=== PATIENT | female | born 1975 | race American Indian/Alaskan Native ===

== ENCOUNTER 2020-07-07 15:05 | Emergency (ER) | payer OTHER ==
[2020-07-07] MEDS ORDERED: ZIPRASIDONE MESYLATE 20 MG VIAL IM ONE (17:14)
--- NOTE | 2020-07-07 18:13 | Emergency Department Report ---
ED General Adult HPI - General Chief complaint: Psych Stated complaint: PSYCH Time Seen by Provider: 07/07/20 16:20 Source: patient, EMS Mode of arrival: Stretcher Limitations: Altered Mental Status - History of Present Illness Initial comments: Patient presents to the emergency department with a chief complaint of mental health evaluation. Patient was found on the side of the road by PD and complaint of not being able to walk but at the time of her complaint she was standing or walking. Patient is also standing in the emergency department. Patient is very psychotic and is severely paranoid and is difficult to obtain a history from the patient. She denies wanting to kill self or others. -: unknown Severity scale (0 -10): 0 Consistency: constant Improves with: none Worsens with: none Associated Symptoms: denies other symptoms Treatments Prior to Arrival: none - Related Data Home Medications Medication Instructions Recorded Confirmed Last Taken Bupropion HCl [Wellbutrin XL] 300 mg PO TID 07/07/20 07/07/20 Unknown Buspar 07/07/20 Unknown Gabapentin 07/07/20 Unknown Hydralazine HCl 50 mg PO TID 07/07/20 07/07/20 Unknown Nortriptyline 50 mg PO TID 07/07/20 07/07/20 Unknown labetaloL [Labetalol 200mg TAB] 200 mg PO TID 07/07/20 07/07/20 Unknown tiZANidine [Zanaflex 4mg TAB] 4 mg PO QID 07/07/20 07/07/20 Unknown Allergies Allergy/AdvReac Type Severity Reaction Status Date / Time amoxicillin AdvReac Unknown Verified 07/07/20 15:19 ED Review of Systems ROS: Stated complaint: PSYCH Other details as noted in HPI Comment: All other systems reviewed and negative Constitutional: denies: chills, fever Eyes: denies: eye pain, eye discharge, vision change ENT: denies: ear pain, throat pain Respiratory: denies: cough, shortness of breath, wheezing Cardiovascular: denies: chest pain, palpitations Endocrine: no symptoms reported Gastrointestinal: denies: abdominal pain, nausea, diarrhea Genitourinary: denies: urgency, dysuria, discharge Musculoskeletal: denies: back pain, joint swelling, arthralgia Skin: denies: rash, lesions Neurological: denies: headache, weakness, paresthesias, other Psychiatric: denies: anxiety, depression, homicidal thoughts Hematological/Lymphatic: denies: easy bleeding, easy bruising ED Past Medical Hx - Past Medical History Hx Psychiatric Treatment: Yes (bipolar, schizophrenia) - Social History Smoking Status: Never Smoker - Medications Home Medications: Home Medications Medication Instructions Recorded Confirmed Last Taken Type Bupropion HCl [Wellbutrin XL] 300 mg PO TID 07/07/20 07/07/20 Unknown History Buspar 07/07/20 Unknown History Gabapentin 07/07/20 Unknown History Hydralazine HCl 50 mg PO TID 07/07/20 07/07/20 Unknown History Nortriptyline 50 mg PO TID 07/07/20 07/07/20 Unknown History labetaloL [Labetalol 200mg TAB] 200 mg PO TID 07/07/20 07/07/20 Unknown History tiZANidine [Zanaflex 4mg TAB] 4 mg PO QID 07/07/20 07/07/20 Unknown History ED Physical Exam - General Limitations: Altered Mental Status General appearance: alert, in no apparent distress - Head Head exam: Present: atraumatic, normocephalic - Eye Eye exam: Present: normal appearance, PERRL, EOMI - ENT ENT exam: Present: mucous membranes moist - Neck Neck exam: Present: normal inspection - Respiratory Respiratory exam: Present: normal lung sounds bilaterally. Absent: respiratory distress - Cardiovascular Cardiovascular Exam: Present: regular rate, normal rhythm. Absent: systolic murmur, diastolic murmur, rubs, gallop - GI/Abdominal GI/Abdominal exam: Present: soft, normal bowel sounds. Absent: distended, tenderness - Extremities Exam Extremities exam: Present: normal inspection - Back Exam Back exam: Present: normal inspection - Neurological Exam Neurological exam: Present: alert, oriented X3, CN II-XII intact. Absent: motor sensory deficit - Psychiatric Psychiatric exam: Present: manic, other (Paranoid and expressing psychoses) - Skin Skin exam: Present: warm, dry, intact, normal color. Absent: rash ED Course Vital Signs 07/07/20 07/07/20 07/07/20 15:14 20:45 21:48 Temperature 99.0 F 98 F Pulse Rate 124 H 115 H 113 H Respiratory 20 18 Rate Blood Pressure 201/137 Blood Pressure 210/114 201/137 [Left] O2 Sat by Pulse 97 99 Oximetry 07/07/20 23:51 Temperature Pulse Rate 76 Respiratory 16 Rate Blood Pressure Blood Pressure 158/88 [Left] O2 Sat by Pulse 99 Oximetry ED Medical Decision Making - Lab Data Result diagrams: 07/07/20 20:59 07/07/20 20:59 Lab Results 07/07/20 07/07/20 07/07/20 Range/Units 20:59 20:59 20:59 WBC 9.7 (4.5-11.0) K/mm3 RBC 4.35 (3.65-5.03) M/mm3 Hgb 12.7 (10.1-14.3) gm/dl Hct 38.3 (30.3-42.9) % MCV 88 (79-97) fl MCH 29 (28-32) pg MCHC 33 (30-34) % RDW 14.9 (13.2-15.2) % Plt Count 353 (140-440) K/mm3 Lymph % (Auto) 23.6 (13.4-35.0) % [place] % (Auto) 8.5 H (0.0-7.3) % Eos % (Auto) 1.3 (0.0-4.3) % Baso % (Auto) 0.3 (0.0-1.8) % Lymph # (Auto) 2.3 (1.2-5.4) K/mm3 [place] # (Auto) 0.8 (0.0-0.8) K/mm3 Eos # (Auto) 0.1 (0.0-0.4) K/mm3 Baso # (Auto) 0.0 (0.0-0.1) K/mm3 Add Manual Diff Complete Seg Neutrophils % 66.3 (40.0-70.0) % Seg Neutrophils # 6.4 (1.8-7.7) K/mm3 Sodium (137-145) mmol/L Potassium (3.6-5.0) mmol/L Chloride (98-107) mmol/L Carbon Dioxide (22-30) mmol/L Anion Gap mmol/L BUN (7-17) mg/dL Creatinine (0.6-1.2) mg/dL Estimated GFR ml/min BUN/Creatinine Ratio % Glucose (65-100) mg/dL Calcium (8.4-10.2) mg/dL Total Bilirubin (0.1-1.2) mg/dL AST (5-40) units/L ALT (7-56) units/L Alkaline Phosphatase (35-129) units/L Total Protein (6.3-8.2) g/dL Albumin (3.9-5) g/dL Albumin/Globulin Ratio % Urine Color (Yellow) Urine Turbidity (Clear) Urine pH (5.0-7.0) Ur Specific [place] (1.003-1.030) Urine Protein (Negative) mg/dL Urine Glucose (UA) (Negative) mg/dL Urine Ketones (Negative) mg/dL Urine Blood (Negative) Urine Nitrite (Negative) Urine Bilirubin (Negative) Urine Urobilinogen (<2.0) mg/dL Ur Leukocyte Esterase (Negative) Urine WBC (Auto) (0.0-6.0) /HPF Urine RBC (Auto) (0.0-6.0) /HPF U Epithel Cells (Auto) (0-13.0) /HPF Urine Bacteria (Auto) (Negative) /HPF Urine Mucus /HPF Salicylates < 0.3 L (2.8-20.0) mg/dL Urine Opiates Screen Urine Methadone Screen Acetaminophen < 5.0 L (10.0-30.0) ug/mL Ur Barbiturates Screen Ur Phencyclidine Scrn Ur Amphetamines Screen U Benzodiazepines Scrn Urine Cocaine Screen U Marijuana (THC) Screen Drugs of Abuse Note Plasma/Serum Alcohol (0-0.07) % 07/07/20 07/07/20 07/07/20 Range/Units 20:59 20:59 21:41 WBC (4.5-11.0) K/mm3 RBC (3.65-5.03) M/mm3 Hgb (10.1-14.3) gm/dl Hct (30.3-42.9) % MCV (79-97) fl MCH (28-32) pg MCHC (30-34) % RDW (13.2-15.2) % Plt Count (140-440) K/mm3 Lymph % (Auto) (13.4-35.0) % [place] % (Auto) (0.0-7.3) % Eos % (Auto) (0.0-4.3) % Baso % (Auto) (0.0-1.8) % Lymph # (Auto) (1.2-5.4) K/mm3 [place] # (Auto) (0.0-0.8) K/mm3 Eos # (Auto) (0.0-0.4) K/mm3 Baso # (Auto) (0.0-0.1) K/mm3 Add Manual Diff Seg Neutrophils % (40.0-70.0) % Seg Neutrophils # (1.8-7.7) K/mm3 Sodium 140 (137-145) mmol/L Potassium 4.0 (3.6-5.0) mmol/L Chloride 103.4 (98-107) mmol/L Carbon Dioxide 26 (22-30) mmol/L Anion Gap 15 mmol/L BUN 10 (7-17) mg/dL Creatinine 1.3 H (0.6-1.2) mg/dL Estimated GFR 53 ml/min BUN/Creatinine Ratio 8 % Glucose 105 H (65-100) mg/dL Calcium 9.1 (8.4-10.2) mg/dL Total Bilirubin 0.30 (0.1-1.2) mg/dL AST 36 (5-40) units/L ALT 41 (7-56) units/L Alkaline Phosphatase 73 (35-129) units/L Total Protein 7.5 (6.3-8.2) g/dL Albumin 4.1 (3.9-5) g/dL Albumin/Globulin Ratio 1.2 % Urine Color Yellow (Yellow) Urine Turbidity Cloudy (Clear) Urine pH 7.0 (5.0-7.0) Ur Specific [place] 1.009 (1.003-1.030) Urine Protein 30 mg/dl (Negative) mg/dL Urine Glucose (UA) Neg (Negative) mg/dL Urine Ketones Neg (Negative) mg/dL Urine Blood Lg (Negative) Urine Nitrite Neg (Negative) Urine Bilirubin Neg (Negative) Urine Urobilinogen < 2.0 (<2.0) mg/dL Ur Leukocyte Esterase Neg (Negative) Urine WBC (Auto) 13.0 H (0.0-6.0) /HPF Urine RBC (Auto) 54.0 (0.0-6.0) /HPF U Epithel Cells (Auto) 8.0 (0-13.0) /HPF Urine Bacteria (Auto) 2+ (Negative) /HPF Urine Mucus Few /HPF Salicylates (2.8-20.0) mg/dL Urine Opiates Screen Urine Methadone Screen Acetaminophen (10.0-30.0) ug/mL Ur Barbiturates Screen Ur Phencyclidine Scrn Ur Amphetamines Screen U Benzodiazepines Scrn Urine Cocaine Screen U Marijuana (THC) Screen Drugs of Abuse Note Plasma/Serum Alcohol < 0.01 (0-0.07) % 07/07/20 Range/Units 21:41 WBC (4.5-11.0) K/mm3 RBC (3.65-5.03) M/mm3 Hgb (10.1-14.3) gm/dl Hct (30.3-42.9) % MCV (79-97) fl MCH (28-32) pg MCHC (30-34) % RDW (13.2-15.2) % Plt Count (140-440) K/mm3 Lymph % (Auto) (13.4-35.0) % [place] % (Auto) (0.0-7.3) % Eos % (Auto) (0.0-4.3) % Baso % (Auto) (0.0-1.8) % Lymph # (Auto) (1.2-5.4) K/mm3 [place] # (Auto) (0.0-0.8) K/mm3 Eos # (Auto) (0.0-0.4) K/mm3 Baso # (Auto) (0.0-0.1) K/mm3 Add Manual Diff Seg Neutrophils % (40.0-70.0) % Seg Neutrophils # (1.8-7.7) K/mm3 Sodium (137-145) mmol/L Potassium (3.6-5.0) mmol/L Chloride (98-107) mmol/L Carbon Dioxide (22-30) mmol/L Anion Gap mmol/L BUN (7-17) mg/dL Creatinine (0.6-1.2) mg/dL Estimated GFR ml/min BUN/Creatinine Ratio % Glucose (65-100) mg/dL Calcium (8.4-10.2) mg/dL Total Bilirubin (0.1-1.2) mg/dL AST (5-40) units/L ALT (7-56) units/L Alkaline Phosphatase (35-129) units/L Total Protein (6.3-8.2) g/dL Albumin (3.9-5) g/dL Albumin/Globulin Ratio % Urine Color (Yellow) Urine Turbidity (Clear) Urine pH (5.0-7.0) Ur Specific [place] (1.003-1.030) Urine Protein (Negative) mg/dL Urine Glucose (UA) (Negative) mg/dL Urine Ketones (Negative) mg/dL Urine Blood (Negative) Urine Nitrite (Negative) Urine Bilirubin (Negative) Urine Urobilinogen (<2.0) mg/dL Ur Leukocyte Esterase (Negative) Urine WBC (Auto) (0.0-6.0) /HPF Urine RBC (Auto) (0.0-6.0) /HPF U Epithel Cells (Auto) (0-13.0) /HPF Urine Bacteria (Auto) (Negative) /HPF Urine Mucus /HPF Salicylates (2.8-20.0) mg/dL Urine Opiates Screen Presumptive negative Urine Methadone Screen Presumptive negative Acetaminophen (10.0-30.0) ug/mL Ur Barbiturates Screen Presumptive negative Ur Phencyclidine Scrn Presumptive negative Ur Amphetamines Screen Presumptive negative U Benzodiazepines Scrn Presumptive negative Urine Cocaine Screen Presumptive negative U Marijuana (THC) Screen Presumptive negative Drugs of Abuse Note Disclamer Plasma/Serum Alcohol (0-0.07) % - Radiology Data Radiology results: report reviewed - Medical Decision Making The patient is medically cleared Urinalysis shows a dirty catch and is not a UTI Patient evaluated by mental health and is awaiting psychiatric placement 1013 applied Critical care attestation.: If time is entered above; I have spent that time in minutes in the direct care of this critically ill patient, excluding procedure time. ED Disposition Clinical Impression: Psychosis, Paranoia Disposition: [id number]/TX-65 PSY HOSP/PSY UNIT Is pt being admited?: No Does the pt Need Aspirin: No Condition: Stable Referrals: PRIMARY CARE, [Primary Care Provider] - 3-5 Days
[2020-07-07 21:40] LABS: Albumin 4.1 g/dL (3.9-5); Calcium 9.1 mg/dL (8.4-10.2)
[2020-07-07] MEDS ORDERED: hydrALAZINE 25 MG TAB PO ONE (21:44)
[2020-07-07] MEDS ORDERED: hydrALAZINE 25 MG TAB ONE (21:47)
[2020-07-07 22:45] LABS: Amphetamine Screen,Urine PRESUMPTIVE NEGATIVE; Benzodiazepines Screen,Urine PRESUMPTIVE NEGATIVE; Cannabinoid Screen,Urine PRESUMPTIVE NEGATIVE; Cocaine Screen,Urine PRESUMPTIVE NEGATIVE; Methadone Screen,Urine PRESUMPTIVE NEGATIVE; Opiate Screen,Urine PRESUMPTIVE NEGATIVE
[2020-07-07 22:51] LABS: Bacteria,Urine 2+ /HPF (Negative); Bilirubin,Urine NEG (Negative); Blood,Urine LG (Negative); Color,Urine Yellow (Yellow); Mucus,Urine FEW /HPF; Urobilinogen,Urine < 2.0 mg/dL (<2.0)
[2020-07-07 23:39] LABS: Red Blood Count 4.35 M/mm3 (3.65-5.03)
[2020-07-07 23:40] LABS: Hematocrit 38.3 % (30.3-42.9); Hemoglobin 12.7 gm/dl (10.1-14.3); Mean Corpuscular Volume 88 fl (79-97)
[2020-07-07 23:41] LABS: Eosinophils % (Auto) 1.3 % (0.0-4.3); Lymphocytes % (Auto) 23.6 % (13.4-35.0); Mean Corpuscular HGB Conc 33 % (30-34); Monocytes % (Auto) 8.5 % (0.0-7.3); Platelet Count 353 K/mm3 (140-440); Red Cell Distribution Width 14.9 % (13.2-15.2)
[2020-07-07 23:42] LABS: Basophils % (Auto) 0.3 % (0.0-1.8); Eosinophils # (Auto) 0.1 K/mm3 (0.0-0.4); Lymphocytes # (Auto) 2.3 K/mm3 (1.2-5.4); Monocytes # (Auto) 0.8 K/mm3 (0.0-0.8)
[2020-07-08 08:13] VITALS: BP 188/120
[2020-07-08] MEDS: hydrALAZINE 25 MG TAB PO SCH ×2 (09:17→14:21)
--- NOTE | 2020-07-08 12:07 | Consultation ---
History of Present Illness - Reason for Consult Consult date: 07/08/20 Reason for consult: psychotic, paranoid - History of Present Psychiatric Illness The patient's medical record was reviewed and the patient's progress was discussed with the nursing staff. The nurse caring for the patient states she has been calm, and cooperative with no psychosis observed. She also says the patient has denies SI/HI to her. The nurse note also states the patient denies SI/HI/A/V hallucinations. Colt Alba is a 45y/o female patient who states she was brought to the ER for being unable to walk. The patient states, "I fall a lot for some reason and black out sometimes." She is calm, cooperative and polite. She says "my mother felt like I needed a psychiatric evaluation for my bipolar." She then says, "for mood swings? She wants me in a psych hospital for mood swings." The patient says, "ma'am, I'm not suicidal nor am I homicidal." She then says, "I have five children and 12 grandchildren. I'm not about to hurt myself or anybody." The patient also states she's "in school." She denies hallucinations of any kind, or any feelings of fear or endangerment. She also denies any past suicide attempts. She says she was admitted for psych related conditions "in the past." The patient denies any illicit drug use, alcohol or nicotine. She says, "I only take meds prescribed to me." She says she has a history of "schizophrenia and bipolar and sees Dr. Green of [place]." She says "I also see a therapist and I just recently saw my therapist." She says she takes "wellbutrin, buspar, seroquel." The patient says she takes her meds every day. PAST PSYCHIATRIC HISTORY: Psychiatric diagnoses: schizophrenia, bipolar Suicide attempts or Self-harm behavior: Denies Prior psychiatric hospitalizations: in the past Substance Abuse history: Denies Previous psychiatric medications tried: seroquel, wellbutrin, buspar Outpatient treatment: yes PAST MEDICAL HISTORY: Family Psychiatric History: None reported or documented SOCIAL HISTORY Marital Status: Single Living Arrangements: with mom Employment Status: Unemployed Access to guns/weapons: Denies Education: current student in college History of Abuse: none reported Legal History: Denies REVIEW OF SYSTEMS Constitutional: Negative for weight loss ENT: Negative for stridor Respiratory: Negative for cough or hemoptysis All other systems reviewed and are negative MENTAL STATUS EXAMINATION General Appearance: Dressed appropriately Behavior: calm, cooperative, polite Mood: "good" Affect and affective range: Congruent with stated mood Thought Process: goal directed Speech: Normal tone and pace Suicidal Ideation: Denies Homicidal Ideation: Denies Hallucinations: Denies Delusions: None elicited Insight and Judgment: Normal Memory/Cognition: Limited Attention: Normal Orientation: Alert, oriented x 3 Assessment Bipolar Disorder PLAN D/c 1013 Continue previously prescribed home regimen Sitter: Defer to primary Medical: Per primary Disposition: Do not recommend acute inpatient treatment. The patient may discharge home once medically clear. She has consistently denied any feelings of self harm, fear of harming others or feelings of endangerment. The patient understands that if any of these feelings arise she is to seek immediate assistance including the crisis hotline, 911 and/or ER. The supervisor picking crew to further discuss safety plan The patient is to follow up with outpatient psych or primary in 7 to 14 days. Will sign off. Thank you for this consult Medications and Allergies Allergies Allergy/AdvReac Type Severity Reaction Status Date / Time amoxicillin AdvReac Unknown Verified 07/07/20 15:19 Home Medications Medication Instructions Recorded Confirmed Last Taken Type Bupropion HCl [Wellbutrin XL] 300 mg PO TID 07/07/20 07/07/20 Unknown History Buspar 07/07/20 Unknown History Gabapentin 07/07/20 Unknown History Hydralazine HCl 50 mg PO TID 07/07/20 07/07/20 Unknown History Nortriptyline 50 mg PO TID 07/07/20 07/07/20 Unknown History labetaloL [Labetalol 200mg TAB] 200 mg PO TID 07/07/20 07/07/20 Unknown History tiZANidine [Zanaflex 4mg TAB] 4 mg PO QID 07/07/20 07/07/20 Unknown History Active Meds: Active Medications Hydralazine HCl (Apresoline) 50 mg PO Q8HR [facility] Last Admin: 07/08/20 09:17 Dose: 50 mg Documented by: Labetalol HCl (Labetalol) 200 mg PO TID [facility] Mental Status Exam - Vital signs Last Vital Signs Temp 98.1 F 07/08/20 08:11 Pulse 113 H 07/08/20 08:11 Resp 18 07/08/20 08:11 BP 188/120 07/08/20 09:17 Pulse Ox 100 07/08/20 08:11 Results Result Diagrams: 07/07/20 20:59 07/07/20 20:59 Abnormal lab results 07/07/20 07/07/20 07/07/20 Range/Units 20:59 20:59 20:59 [place] % (Auto) 8.5 H (0.0-7.3) % Creatinine (0.6-1.2) mg/dL Glucose (65-100) mg/dL Urine WBC (Auto) (0.0-6.0) /HPF Salicylates < 0.3 L (2.8-20.0) mg/dL Acetaminophen < 5.0 L (10.0-30.0) ug/mL 07/07/20 07/07/20 Range/Units 20:59 21:41 [place] % (Auto) (0.0-7.3) % Creatinine 1.3 H (0.6-1.2) mg/dL Glucose 105 H (65-100) mg/dL Urine WBC (Auto) 13.0 H (0.0-6.0) /HPF Salicylates (2.8-20.0) mg/dL Acetaminophen (10.0-30.0) ug/mL All other labs normal.
[2020-07-08] MEDS ORDERED: NON-FORMULARY EACH (Hydralazine Hcl [Hydralazine Hcl] 50 MG) PO SCH (14:00)
== END 2020-07-08 14:44 | disposition home or self-care (01) ==
LOC: ED 15:05
DX: F31.9 Bipolar disorder, unspecified (principal); F23 Brief psychotic disorder; Z79.899 Other long term (current) drug therapy; Z88.6 Allergy status to analgesic agent; Z88.1 Allergy status to other antibiotic agents
CPT/HCPCS: 36415; 80053; 80307; 81001; 85025; 87086; 96372; 99284; J3486; 80320; G0480